=== PATIENT | male | born 1965 | race Caucasian/White ===

== ENCOUNTER → 2020-02-26 10:44 | Outpatient (BNVA) | payer OTHER, SELFPAY | PROVIDERS: Family Provider Nurse Practitioner Family; PCP Family Medicine; Referring Provider Family Medicine; Visit Provider Orthopaedic Surgery | DX: M25.521 Pain in right elbow (principal) | CPT/HCPCS: 73080 ==

== ENCOUNTER → 2023-06-15 15:30 | Outpatient (BNVA) | payer OTHER, MEDICAID, SELFPAY | PROVIDERS: Family Provider Nurse Practitioner Family; PCP Family Medicine; Referring Provider Nurse Practitioner Family; Visit Provider Internal Medicine Cardiovascular Disease | DX: R07.9 Chest pain, unspecified (principal) | CPT/HCPCS: 93005 ==

== ENCOUNTER 2023-06-23 06:14 | Outpatient (CLI) | payer OTHER, MEDICAID, SELFPAY ==
--- NOTE | 2023-06-23 06:30 | USCV_ITS ---
Sharif Mejia Age: 58 Gender: M : 1965 Exam Date: 06/23/2023 06:41 Ordering Phys: Cass Montelongo MD ([email or web address]) Technologist: Satish Juan [place] [facility] [place]: murmur BP: 125 / 79 HR: 70 Rhythm: Sinus Technical Quality: Adequate MEASUREMENTS (Male / Female) Normal Values 2D ECHO LV Diastolic Diameter PLAX 4.6 cm 4.2 - 5.9 / 3.9 - 5.3 cm IVS Diastolic Thickness 1.2 cm 0.6 - 1.0 / 0.6 - 0.9 cm LVPW Diastolic Thickness 1.6 cm 0.6 - 1.0 / 0.6 - 0.9 cm LVOT Diameter 2.2 cm LV Ejection Fraction MOD 2C 66.5 % LV Ejection Fraction 2C AL 65.3 % LA Diameter 4.3 cm RA Systolic Volume 4C AL 44.8 ml RA Systolic Volume 4C MOD 43.4 ml LA Sys Volume AL 113.3 cm cubed LA Sys Volume Index AL 56.1 cm cubed/m squared Aorta at Sinotubular Diameter 2.4 cm IVC Diameter 1.4 cm M-MODE LA Ao Ratio MM 1.5 AV Cusp Separation MM 2.0 cm DOPPLER AV Peak Velocity 82.7 cm/s LVOT Peak Velocity 67.0 cm/s AV Area Cont Eq vti 3.9 cm squared AV Area Cont Eq pk 3.1 cm squared MV Peak Velocity 447.0 cm/s MV Area PHT 7.0 cm squared Mitral E to A Ratio 2.4 TV Peak Velocity 214.3 cm/s TR Peak Velocity 344.0 cm/s TR Peak Gradient 47.3 mmHg TR Mean Velocity 246.0 cm/s TR Mean Gradient 27.6 mmHg TR Velocity Time Integral 94.2 cm PV Peak Velocity 92.7 cm/s RV Ejection Time 0.3 s FINDINGS Left Ventricle Normal left ventricular size and systolic function, EF 67% . No regional wall motion abnormalities. Right Ventricle The right ventricle is normal in size and function. Right Atrium The right atrium is normal in size. Left Atrium Severe left atrial dilatation witha systolic volume index of 56. Interatrial septum bulging to the right side Mitral Valve Severe prolapse of the posterior mitral leaflet with severe eccentric mitral regurgitation, regurgitant jet directed anteriorly Aortic Valve Appears to be tricuspid. No gross abnormalities noted Tricuspid Valve Trace to mild tricuspid valve regurgitation. Pulmonic Valve No gross abnormalities noted Pericardium Normal pericardium without effusion. Aorta Normal ascending aorta dimension. IVC Normal inferior vena cava. CONCLUSIONS Normal left ventricular size and systolic function, EF 67% . No regional wall motion abnormalities. Severe prolapse of the posterior mitral leaflet with severe eccentric mitral regurgitation, regurgitant jet directed anteriorly. Severe left atrial dilatation with a systolic volume index of 56. Interatrial septum bulging to the right side. Trace to mild tricuspid valve regurgitation. Estimated pulmonary artery peak systolic pressure 28 mmHg There is no pericardial effusion. There are no intracardiac masses. No similar previous studies are available for comparison Dr Cass Montelongo MD [facility] (Electronically Signed) Final Date: 29 Jun 2023 20:36 S
== END 2023-06-23 06:15 | disposition home or self-care (01) ==
PROVIDERS: Family Provider Nurse Practitioner Family; PCP Family Medicine; Visit Provider Internal Medicine Cardiovascular Disease
DX: R06.09 Other forms of dyspnea (principal); I34.0 Nonrheumatic mitral (valve) insufficiency; I34.1 Nonrheumatic mitral (valve) prolapse
CPT/HCPCS: 93306

== ENCOUNTER 2023-07-21 11:31 | Day surgery (SDC) | payer OTHER, MEDICAID, SELFPAY ==
--- NOTE | 2023-07-21 11:36 | USCV_ITS ---
Sharif Mejia Age: 58 Gender: M : 1965 Exam Date: 07/21/2023 12:35 Ordering Phys: Cass Montelongo MD ([email or web address]) Technologist: MYA Exam Location: [facility] – [place] Indication: MURMUR, MR BP: 131 / HR: 79 Rhythm: Sinus Technical Quality: Adequate MEASUREMENTS (Male / Female) Normal Values Medications IV propofol administered with anesthesia service. Please refer to anesthesia report for details Complications None Proc. Components The patient was brought to the VIVIANA examination room in a fasting state after obtaining an informed consent. The VIVIANA probe was passed into the posterior pharynx , mid-esophagus, distal esophagus, and gastric fundus. VIVIANA was performed at multiple levels. The patient tolerated the procedure well and there were no complications. FINDINGS Left Ventricle Patient with normal size and ejection fraction. Right Ventricle No intracavitary masses. Normal size and ejection fraction. Right Atrium Appears to be of normal size with no intracavitary masses Left Atrium Mildly dilated. LA Appendage Good contractility with no mass or vegetations. There is no was no reversal of flow in the pulmonic vein IA Septum Appears to be intact within no ASD or PFO by color-flow Doppler examination or saline contrast injection Mitral Valve The posterior mitral leaflet appears to be flailing with a severe prolapse of the P2 scallop with moderate prolapse of the A2 scallop. Severe mental regurgitation with an eccentric jet directed anteriorly, encircling the atrium Aortic Valve Tricuspid aortic leaflet with no mass or vegetation Tricuspid Valve No masses or vegetations. Pulmonic Valve No muscle vegetations noted. Pericardium No pericardial effusion. Aorta The ascending, arch and the distal aorta appear to have no unstable plaque or lesions CONCLUSIONS 1 . Severe eccentric mitral regurgitation with the regurgitant jet, encircling the left atrium. 2. Severe prolapse of the P2 scallop with moderate prolapse of the A2 scallop. Some features of flailing of the posterior mitral leaflet 3. Possibly normal LV size and ejection fraction. 4. The aortic, tricuspid and the pulmonic valves appear to have normal morphology. 5. Intact interatrial septum with no evidence of any ASD or PFO by color-flow Doppler examination or by saline contrast injection. No similar previous studies are available for comparison Dr Cass Montelongo MD [facility] (Electronically Signed) Final Date: 22 Jul 2023 15:37 S
[2023-07-21 11:46] VITALS: BP 138/96; PULSE 79; RESP 18; TEMP 36.8; O2SAT 96; BMI 25.8
--- NOTE | 2023-07-21 12:03 | P.HP_ITS ---
Providers/Chief Complaint Admitting Physician: JULITA Montelongo MD Primary Care Provider: Faisal Gutierrez Chief Complaint: R01.1 History of Present Illness Sharif Mejia is a 58 year old male was recently found to have a severe mitral regurgitation and mitral valve prolapse. A VIVIANA was recommended to better evaluate the valve and the MR. Review of Systems Narrative: CONSTITUTIONAL: No fever or chills. EYES: No blurring of vision or other visual disturbances lately. ENT: No hoarseness of voice, auditory disturbances or sore throat. CARDIOVASCULAR: As mentioned above. RESPIRATORY: No significant cough. GASTROINTESTINAL: No hematemesis or melena. GENITOURINARY: No dysuria or hematuria. INTEGUMENTARY: No skin rashes or history of skin cancer. NEURO: No transient ischemic attacks or amaurosis. PSYCHIATRIC: No history of psychosis or major depression. HEMATOLOGIC: No bleeding disorders or significant anemia. ENDOCRINE: No history of polyuria or polydipsia. MUSCULOSKELETAL: No recent joint pain or swelling. ALLERGY/IMMUNOLOGY: As mentioned above. Medications/Allergies Home Medications Medication Instructions Recorded Confirmed Last Taken Type lisinopril 10 mg tablet 10 mg PO DAILY #30 tabs 06/15/23 07/19/23 07/19/23 Rx Allergies Allergy/AdvReac Type Severity Reaction Status Date / Time No Known Allergies Allergy Verified 07/19/23 08:52 PFSH Acute PFSH: Family History Mother Diabetes Denies family history of CAD (coronary artery disease) Anemia Aneurysm Arrhythmia Clotting disorder Atrial fibrillation Heart disease Hyperlipidemia Sudden cardiac Chronic kidney disease (CKD) Carotid artery disease Pulmonary embolism Cardiomyopathy Stroke Social History Smoking and tobacco/nicotine status: never used tobacco/nicotine Alcohol intake: current Alcohol intake frequency: holidays/special occasions only Substance/Drug Use: never Vitals/I&O/Wt Last Vital Signs Temp 98.2 F 07/21/23 11:46 Pulse 79 07/21/23 11:46 Resp 18 07/21/23 11:46 BP 138/96 07/21/23 11:46 Pulse Ox 96 07/21/23 11:46 O2 Del Method Room Air 07/21/23 11:46 Weight last 48 hrs Weight 180 lb Physical Exam Narrative: GENERAL: The patient is alert and oriented times three. Not in any acute distre ss. HEENT: No significant pallor, icterus or lymphadenopathy.Oral cavity: There are no mucous membrane lesions. NECK: Trachea appears to be central. No masses noted. No JVD or thyromegaly appreciated. RESPIRATORY: Chest is symmetrical. No intercostals muscle retraction or any accessory muscle activation. There is no chest wall tenderness. Breath sounds are heard bilaterally. No rales or rhonchi heard. No evidence of any consolidation. BREASTS: Deferred. HEART: The heart sounds are normal. No S3 or S4. Pansystolic murmur in the mitral area. No diastolic murmurs.. No pericardial rub ABDOMEN: No vessel pulsations or distention. No tenderness. No organomegaly appreciated. Bowel sounds are normally heard. : Deferred. RECTAL: Deferred. LYMPHATIC: No lymphadenopathy noted in the neck. EXTREMITIES: No edema or cyanosis. No clubbing. MUSCULOSKELETAL: No acute joint deformities or swelling SKIN: There are no significant rashes or ecchymosis NEUROPSYCHIATRIC: The patient is alert and oriented x3. Appears to be in a good mood. No tremors or rigidity noted. A&P Assessment and plan (1) Mitral regurgitation: To better evaluate the mitral valve and the regurgitation, a VIVIANA would be appropriate. The risk of aspiration, bleeding, soft tissue injury, perforation of the stomach/esophagus and other concomitant complications were explained to the patient in detail. The patient understood this well and consented to proceed . Based on the findings, further recommendations will be made Qualifiers: Cardiac valve disease etiology: nonrheumatic Qualified Code(s): I34.0 - Nonrheumatic mitral (valve) insufficiency (2) Mitral valve prolapse: As mentioned above (3) Elevated blood pressure reading: Currently normotensive. Plan Patient is scheduled for the VIVIANA today. Based on the results, further management decisions will be made. Attestations Medical Necessity Statement*: Possible discharge home after the VIVIANA Coding Level of Care Code 84155 Diagnoses Nonrheumatic mitral valve regurgitation I34.0 Cardiac valve disease etiology: nonrheumatic Mitral valve prolapse I34.1 Elevated blood pressure reading R03.0
--- NOTE | 2023-07-21 12:04 | ANES.PREANE2 ---
Pre-Anesthetic Assessment Height/Weight: Height 1.78 m Weight 81.647 kg Temp Pulse Resp BP Pulse Ox O2 Del Method 98.2 F 79 18 138/96 96 Room Air 07/21/23 11:46 07/21/23 11:46 07/21/23 11:46 07/21/23 11:46 07/21/23 11:46 07/21/23 11:46 Operation Date: 07/21/23 12:30 Proposed Procedures p VIVIANA 80418, I38, R01.1(Not Applicable) - Cass Montelongo MD Familial anesthetic complications: None Was Beta Priya taken within 24 hours: N/A Was Clonidine taken within 24 hours: N/A Last intake: Intake Last Liquid Date 07/20/23 Last Liquid Time 22:00 Last Solid Date 07/20/23 Last Solid Time 20:00 Social No alcohol and No tobacco Exam alert, oriented x 3, clear to auscultation bilaterally and regular rate & rhythm Airway Mallampati: Class II Dentition: full CV/HEM MVR Anesthetic Plan ASA status: 3 Anesthesia: MAC Risk of > 500 ml blood loss (7ml/kg in children): No Medications/Allergies Home Medications Medication Instructions Recorded Confirmed Last Taken Type lisinopril 10 mg tablet 10 mg PO DAILY #30 tabs 06/15/23 07/19/23 07/19/23 Rx Allergies Allergy/AdvReac Type Severity Reaction Status Date / Time No Known Allergies Allergy Verified 07/19/23 08:52 [facility] Anesthesia Family History Mother Diabetes Denies family history of CAD (coronary artery disease) Anemia Aneurysm Arrhythmia Clotting disorder Atrial fibrillation Heart disease Hyperlipidemia Sudden cardiac Chronic kidney disease (CKD) Carotid artery disease Pulmonary embolism Cardiomyopathy Stroke Social History Smoking and tobacco/nicotine status: never used tobacco/nicotine Alcohol intake: current Alcohol intake frequency: holidays/special occasions only Substance/Drug Use: never Data Anesthesia Cardiac Studies: Echocardiogram 06/23/23
--- NOTE | 2023-07-21 12:05 | W.PM.OPSUD ---
Surgery/Procedure H&P Update DATE OF PROCEDURE: July 21, 2023 DATE H&P PERFORMED: 07/21/23 H&P UPDATE INFORMATION: I have reviewed H&P completed within last 30 days, I have examined patient prior to procedure and No changes to prior documentation PREOP DIAGNOSIS: Severe mitral regurgitation/mitral valve prolapse PRIMARY INDICATION FOR PROCEDURE: MVP/MR PLANNED PROCEDURE: Operation Date: 07/21/23 12:30 Proposed Procedures p VIVIANA 92811, I38, R01.1(Not Applicable) - Cass Montelongo MD
[2023-07-21] MEDS: sodium chloride 0.9% 1,000 ML 30 ML IV (12:17)
[2023-07-21 12:59] VITALS: BP 112/74; PULSE 74; RESP 12; TEMP 36.2; O2SAT 97
[2023-07-21 13:14] VITALS: BP 119/83; PULSE 71; RESP 14; O2SAT 95
[2023-07-21 13:29] VITALS: BP 120/81; PULSE 76; RESP 18; O2SAT 96
--- NOTE | 2023-07-21 13:45 | ANE.PACU2 ---
Inpatient post-anesthesia follow up: Airway intact: Yes Vital signs: Temperature 97.2 F Pulse Rate 76 Respiratory Rate 18 Blood Pressure 120/81 Pulse Oximetry 96 Oxygen Delivery Me thod Room Air Oxygen Flow Rate 4 Fraction of Inspir ed Oxygen Hydration adequate: Yes Nausea and vomiting: No Pain level: 1 Mental status: Baseline
== END 2023-07-21 13:48 | disposition home or self-care (01) ==
PROVIDERS: PCP Family Medicine; Visit Provider Internal Medicine Cardiovascular Disease
PROC: (CPT 93312; principal; 2023-07-21 12:30)
DX: R01.1 Cardiac murmur, unspecified (principal); I34.0 Nonrheumatic mitral (valve) insufficiency; I34.1 Nonrheumatic mitral (valve) prolapse; R03.0 Elevated blood-pressure reading, without diagnosis of hypertension
CPT/HCPCS: 93312; 93320; 93325; J2704; J7030

== ENCOUNTER 2024-09-06 10:58 | Outpatient (CLI) | payer OTHER, SELFPAY ==
--- NOTE | 2024-09-06 11:15 | USCV_ITS ---
Sharif Mejia Age: 59 Gender: M : 1965 Exam Date: 09/06/2024 11:20 Ordering Phys: Cass Montelongo MD ([email or web address]) Technologist: BRITTANY Exam Location: [facility] – [place] Indication: BP: 120 / 80 HR: 82 Rhythm: Sinus Technical Quality: Adequate MEASUREMENTS (Male / Female) Normal Values 2D ECHO LV Diastolic Diameter PLAX 4.6 cm 4.2 - 5.9 / 3.9 - 5.3 cm IVS Diastolic Thickness 1.0 cm 0.6 - 1.0 / 0.6 - 0.9 cm IVS Systolic Thickness 2.0 cm LVPW Diastolic Thickness 1.1 cm 0.6 - 1.0 / 0.6 - 0.9 cm LVPW Systolic Thickness 1.7 cm LVOT Diameter 2.1 cm LV Ejection Fraction 2D Teich 63.0 % LV Ejection Fraction MOD 4C 54.2 % LV Ejection Fraction MOD 2C 54.0 % LV Ejection Fraction 2C AL 55.5 % LA Diameter 4.2 cm RA Systolic Volume 4C AL 55.0 ml RA Systolic Volume 4C MOD 51.8 ml LA Sys Volume AL 45.7 cm cubed LA Sys Volume Index AL 21.9 cm cubed/m squared Aorta at Sinotubular Diameter 2.4 cm IVC Diameter 1.6 cm M-MODE LA Ao Ratio MM 1.5 AV Cusp Separation MM 1.7 cm DOPPLER AV Peak Velocity 86.0 cm/s LVOT Peak Velocity 80.0 cm/s AV Area Cont Eq vti 2.7 cm squared AV Area Cont Eq pk 3.2 cm squared MV Peak Velocity 110.0 cm/s MV Area PHT 6.9 cm squared Mitral E to A Ratio 0.9 TR Peak Velocity 149.0 cm/s TR Peak Gradient 8.9 mmHg TV Peak E Velocity 69.0 cm/s PV Peak Velocity 107.0 cm/s FINDINGS Left Ventricle Normal left ventricular size and systolic function, EF 56%.mild left ventricular hypertrophy. No regional wall motion abnormalities. Grade I/IV diastolic dysfunction (abnormal relaxation filling pattern), normal to mildly elevated filling pressures. Right Ventricle The right ventricle is normal in size and function. Right Atrium The right atrium is normal in size. Left Atrium Left atrium appears to be mildly dilated Mitral Valve Thickened mitral valve. Moderate mitral annular calcification. Aortic Valve No gross abnormalities noted. Tricuspid Valve No gross abnormalities noted Pulmonic Valve Pulmonic valve not well visualized. Pericardium Normal pericardium without effusion. Aorta Normal aortic annulus size. IVC The inferior vena cava appears normal. CONCLUSIONS Normal left ventricular size and systolic function, EF 56%.mild left ventricular hypertrophy. No regional wall motion abnormalities. Grade I/IV diastolic dysfunction (abnormal relaxation filling pattern), normal to mildly elevated filling pressures. Thickened mitral valve. Moderate mitral annular calcification. Left atrium appears to be mildly dilated There is no pericardial effusion. There are no intracardiac masses. Compared to the previous study from 06/23/2023, there may not be a significant change. Dr Cass Montelongo MD [facility] (Electronically Signed) Final Date: 08 September 2024 13:18 S
== END 2024-09-06 10:59 | disposition home or self-care (01) ==
LOC: RAD 11:01
PROVIDERS: PCP Family Medicine; Visit Provider Internal Medicine Cardiovascular Disease
DX: R06.09 Other forms of dyspnea (principal); R93.1 Abnormal findings on diagnostic imaging of heart and coronary circulation; I51.7 Cardiomegaly; I34.81 Nonrheumatic mitral (valve) annulus calcification
CPT/HCPCS: 93306